=== PATIENT | male | born 1985 | race Caucasian/White ===

== ENCOUNTER 2021-09-08 00:04 | Emergency (ER) | payer SELFPAY ==
[~2021-09-08] VITALS: Ht 182.9 cm; Wt 79.0 kg
[2021-09-08 00:12] VITALS: BP 134/82
[2021-09-08 00:30] VITALS: BP 135/80
[2021-09-08] MEDS ORDERED: AMOX/K CLAV875 M1 PO (00:49)
[2021-09-08 00:52] VITALS: BP 135/80
== END 2021-09-08 00:56 | disposition home or self-care (01) | DRG 153 ==
LOC: ED 00:04
DX: H66.91 Otitis media, unspecified, right ear (principal); J02.9 Acute pharyngitis, unspecified; Z20.822 Contact with and (suspected) exposure to COVID-19

== ENCOUNTER 2022-05-02 12:36 | Emergency (ER) | payer SELFPAY ==
[~2022-05-02] VITALS: Ht 182.9 cm; Wt 85.0 kg
[~2022-05-02 12:36] MED LIST: AMOX/K CLAV875 M1 PO
[2022-05-02 15:39] VITALS: BP 119/71
[2022-05-02] MEDS ORDERED: TAM75CAP PO (15:41)
[2022-05-02] MEDS ORDERED: BENZONATATE200 MG PO (15:41)
== END 2022-05-02 15:37 | disposition home or self-care (01) | DRG 195 ==
LOC: ED 12:36
DX: J10.1 Influenza due to other identified influenza virus with other respiratory manifestations (principal); Z20.822 Contact with and (suspected) exposure to COVID-19; R11.2 Nausea with vomiting, unspecified